=== PATIENT | male | born 1995 | race Caucasian/White ===

== ENCOUNTER 2022-02-28 11:02 | Emergency (ER) | payer SELFPAY ==
[2022-02-28] MEDS ORDERED: Sodium Chloride 0.9% 1,000 ML IV ONE (11:35)
[2022-02-28] MEDS ORDERED: fentaNYL 50 MCG/ML SDV IVPUSH ONE (11:35)
[2022-02-28] MEDS ORDERED: Ondansetron 4 MG/2 ML SDV IVPUSH ONE (11:35)
[2022-02-28 12:49] LABS: CARBON DIOXIDE,CO2 26.9 mmol/L (21.0-32.0); POTASSIUM,K 4.2 mmol/L (3.5-5.1)
== END 2022-02-28 13:42 | disposition home or self-care (01) ==
LOC: MW.ED 11:02
DX: K80.50 Calculus of bile duct without cholangitis or cholecystitis without obstruction (principal)
CPT/HCPCS: 36415; 74176; 80053; 82150; 83690; 85025; 96361; 96374; 96375; 99284; J2405; J3010; J7030